=== PATIENT | female | born 1965 | race Caucasian/White ===

== ENCOUNTER 2019-01-23 19:25 | Emergency (ER) | payer OTHER ==
[~2019-01-23] VITALS: Wt 85.0 kg
[~2019-01-23 19:25] MED LIST: DENIES
[2019-01-23 19:38] VITALS: BP 130/60; PULSE 78; RESP 20
--- NOTE | 2019-01-23 20:51 | ERD ---
ER Documentation Chief Complaint Chief Complaint attacked by 2 dogs; fell; denies hitting head;R hip pain, elbow/face bruise HPI 53-year-old female, previously healthy, presents the emergency department, complaining of neck pain, left elbow pain and right hip pain after sustaining a fall caused by an unprovoked dog attack that occurred approximately 1 hour prior to arrival, when the patient was walking her dog. The patient reports that the dogs belong to her neighbor, she does not know the breed, she denies bites but refers multiple scratches. ROS All systems reviewed and are negative except as per history of present illness. Medications Home Meds Active Scripts Acetaminophen* (Tylenol*) 325 Mg Tablet, 2 TAB PO Q6 PRN for PAIN AND OR ELEVATED TEMP, #20 TAB Prov:MARY BAILEY MD 01/23/19 Ibuprofen* (Motrin*) 400 Mg Tab, 400 MG PO Q6H PRN for PAIN AND OR ELEVATED TEMP, #20 TAB Prov:MARY BAILEY MD 01/23/19 Amoxicillin/Potassium Clav (Amox-Clav 875-125 mg Tablet) 875-125 mg Tab, 1 TAB PO BID for 7 Days, #14 TAB Prov:MARY BAILEY MD 01/23/19 Reported Medications [Denies] No Conflict Check 06/02/11 Allergies Allergies: Coded Allergies: No Known Drug Allergies (Verified Allergy, Unknown, 01/23/19) PMhx/Soc Medical and Surgical Hx: pt denies Medical Hx, pt denies Surgical Hx Hx Miscellaneous Medical Probl: Yes (DENIES MEDICAL PROBLEMS) Hx Alcohol Use: No Hx Substance Use: No Hx Tobacco Use: No FmHx Family History: No diabetes, No coronary disease Physical Exam Vitals Vital Signs Date Temp Pulse Resp B/P (MAP) Pulse Ox O2 O2 Flow FiO2 Time Delivery Rate 01/23/19 98.8 78 20 130/60 99 19:38 (83) Physical Exam Patient alert, oriented, vital signs stable. HEAD: Normocephalic, atraumatic. EYES: PERRLA, EOMI, Sclera and conjunctiva appear normal. NOSE: Clear and patent nostrils. EARS: Canals clear, tympanic membranes WNL. MOUTH: normal lips and tongue, no oral lesions. THROAT: Normal oropharynx, no tonsillar exudates. NECK: Supple, No lymphadenopathy. Full ROM without pain or tenderness. HEART: RRR, no rubs, murmurs, clicks or gallops. LUNGS: Clear to auscultation. ABDOMEN: Soft, non-tender without masses or hepatosplenomegaly. EXTREMITIES: Tenderness to palpation of the left elbow and right hip, no gross deformity, distal neurovascular exam. BACK: Full ROM, no deformity, normal back exam NEURO: Cranial nerves grossly intact, no motor or sensory deficit SKIN: Multiple superficial abrasion and upper extremities. No active bleeding. Results 24 hrs Current Medications Medications Dose Sig/Mary Anne Start Time Status Last (Trade) Ordered Route PRN Stop Time Admin Dose Reason Admin Ibuprofen 400 mg ONCE ONCE 01/23/19 DC 01/23/19 (Motrin) PO 21:00 01/23/19 21:00 21:01 650 mg ONCE ONCE 01/23/19 DC 01/23/19 Acetaminophen PO 21:00 01/23/19 21:00 (Tylenol 21:01 Tab) Lorazepam 1 mg ONCE ONCE 01/23/19 DC 01/23/19 (Ativan) PO 21:00 01/23/19 21:00 21:01 Procedures/MDM Vital signs stable, Low suspicion for foreign body, tendon laceration, nerve damage, cellulitis, erysipelas, abscess. Physical examination and clinical presentation consistent most likely with multiple skin abrasions with left elbow and right hip injury caused by an unprovoked dog attack. During the ED course the patient remained stable, no new complaints. Please schedule a follow up appointment with your primary doctor in 2 days for wound check. If the symptoms persist or worsen like severe pain, fever or signs of infection, return to the hospital immediately The patient is stable to be treated outpatient and will be discharged home with a Rx for antibiotics, anti-inflammatories and pain medications, some side effects of prescribed medications (headache, rash, nausea, vomiting, diarrhea, drowsiness, habituation, bleeding, hypertension, interactions with other medications) were reviewed. Instructions explained and given directly by me to the patient and relatives with acknowledgment and demonstrated understanding. Disclaimer: Inadvertent spelling and grammatical errors are likely due to EHR/dictation software use and do not reflect on the overall quality of patient care. Also, please note that the electronic time recorded on this note does not necessarily reflect the actual time of the patient encounter. Departure Diagnosis: Primary Impression: Dog bite, hand Additional Impressions: Struck by dog Injury of left elbow Injury of right hip and thigh Neck pain Condition: Stable Additional Instructions: Thank you very much for allowing us to participate in your care. Your health and safety is our top priority at [facility]. The evaluation in the emergency department has been done to rule out an acute emergency. Chronic, [id number] conditions may have not been evaluated; therefore, you need to follow up with a primary care provider in the next 48h. If symptoms persist, worsen or new symptoms develop, then patient should return to the ED immediately. Call your primary care doctor TOMORROW for an appointment during the next 2-4 days and bring all the information provided. Have prescriptions filled and follow precisely the directions on the label. If the symptoms get worse and your provider is unavailable, return to the Emergency Department immediately. MARY BAILEY MD Jan 23, 2019 20:51
[2019-01-23] MEDS ORDERED: IBUPROFEN 200 MG TAB PO ONE (21:00)
[2019-01-23] MEDS ORDERED: ACETAMINOPHEN 325 MG TAB PO ONE (21:00)
[2019-01-23] MEDS ORDERED: LORAZEPAM 1 MG TAB PO ONE (21:00)
[2019-01-23] MEDS ORDERED: IBUP-1561 PO (22:36)
[2019-01-23] MEDS ORDERED: AMOX1TAB10 PO (22:36)
[2019-01-23] MEDS ORDERED: ACET325T33 PO (22:36)
== END 2019-01-23 22:46 | disposition home or self-care (01) ==
LOC: FTE 19:25
DX: S61.451A Open bite of right hand, initial encounter (principal); S59.902A Unspecified injury of left elbow, initial encounter; S79.911A Unspecified injury of right hip, initial encounter; S79.921A Unspecified injury of right thigh, initial encounter; S19.9XXA Unspecified injury of neck, initial encounter; W54.0XXA Bitten by dog, initial encounter; Y92.9 Unspecified place or not applicable
CPT/HCPCS: 72040; 73080; 73510; Z7502; Z7610